=== PATIENT | female | born 1990 | race African-American/Black ===

== ENCOUNTER 2018-07-03 22:11 | Emergency (ER) | payer SELFPAY ==
[2018-07-03 22:21] VITALS: BP 132/89; PULSE 88; TEMP 98.2; BMI 24.7
--- NOTE | 2018-07-03 22:56 | PDOC ---
History of Present Illness - General History Source: Patient Exam Limitations: No Limitations - History of Present Illness Initial Comments: 07/03/18 23:04 The patient is a 27 year old female presenting with her family, with a significant past medical history of anxiety, who presents to the ED complaining of a cough for the last 2 days and chest pain. She notes that her chest pain ranges from mild to moderate, without radiation or modifying factors. 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 And she has been noticing her symptoms flare up after a night of heavy drinking. She also notices her symptoms when she encounters second hand smoke. She notes that she smoked a "laced" marijuana joint roughly 6 years back and got a panic attack. She notes that her heart rate was in the 200s at the time, she was given fluids and medicine to bring down her rate. The patient denies shortness of breath, headache and dizziness. Denies fever, chills, nausea, vomiting, diarrhea or constipation. Denies dysuria, frequency, urgency and hematuria. Allergies: None Past surgical history: None reported Social History: Alcohol use. Former Smoker. <Seferino El - Last Filed: 07/03/18 23:02> <Mark Garber - Last Filed: 07/04/18 02:59> - General Chief Complaint: Respiratory Stated Complaint: COUGH/CHEST PAIN Time Seen by Provider: 07/03/18 22:37 Past History <Seferino El - Last Filed: 07/03/18 23:02> - Past Medical History COPD: No Psychiatric Problems: Yes (ANXIETY) - Suicide/Smoking/Psychosocial Hx Smoking History: Never smoked <Mark Garber - Last Filed: 07/04/18 02:59> - Past Medical History Allergies/Adverse Reactions: Allergies Allergy/AdvReac Type Severity Reaction Status Date / Time No Known Allergies Allergy Unverified 07/03/18 22:12 Home Medications: Ambulatory Orders NK [No Known Home Medication] 07/03/18 Review of Systems - Review of Systems Able to Perform ROS?: Yes Comments:: 07/03/18 23:03 GENERAL/CONSTITUTIONAL: No fever or chills. No weakness. HEAD, EYES, EARS, NOSE AND THROAT: No change in vision. No ear pain or discharge. No sore throat. GASTROINTESTINAL: No nausea, vomiting, diarrhea or constipation. GENITOURINARY: No dysuria, frequency, or change in urination. CARDIOVASCULAR: (+) Chest pain. No shortness of breath. RESPIRATORY: (+) Cough. No wheezing, or hemoptysis. MUSCULOSKELETAL: No joint or muscle swelling or pain. No neck or back pain. SKIN: No rash NEUROLOGIC: No headache, vertigo, loss of consciousness, or change in strength/ sensation. ENDOCRINE: No increased thirst. No abnormal weight change. HEMATOLOGIC/LYMPHATIC: No anemia, easy bleeding, or history of blood clots. ALLERGIC/IMMUNOLOGIC: No hives or skin allergy. <Seferino El - Last Filed: 07/03/18 23:02> *Physical Exam - Vital Signs Last Vital Signs Temp Pulse Resp BP Pulse Ox 98.2 F 88 16 132/89 100 07/03/18 22:16 07/03/18 22:16 07/03/18 22:16 07/03/18 22:16 07/03/18 22:16 - Physical Exam Comments: 07/03/18 23:02 Constitutional: Awake, alert, oriented. No acute distress. Head: Normocephalic. Atraumatic Eyes: PERRL. EOMI. Conjunctivae are not pale. ENT: Mucous membranes are moist and intact. Posterior pharynx without exudates or erythema. Uvula midline. Neck: Supple. Full ROM. No lymphadenopathy. Cardiovascular: Regular rate. Regular rhythm. S1, S2 regular. Distal pulses are 2+ and symmetric. Pulmonary/Chest: No evidence of respiratory distress. Clear to auscultation bilaterally No wheezing, rales or rhonchi. Abdominal: Soft and non-distended. There is no tenderness. No rebound, guarding or rigidity. No organomegaly. No palpable masses. Good bowel sounds. Back: No CVA tenderness. Musculoskeletal: No edema. No cyanosis. No clubbing. Full range of motion in all extremities. Nocalf tenderness. Radial/pedal pulses are intact and 2+ bilaterally Skin: Skin is warm and dry. No petechiae. No purpura. Neurological: Alert and oriented to person, place, and time. Cranial nerves II -XII are grossly intact. Normal speech. Strength is grossly symmetric. No sensory deficits. Psychiatric: Good eye contact. Normal interaction, affect and behavior. <Seferino El - Last Filed: 07/03/18 23:02> - Vital Signs Last Vital Signs Temp Pulse Resp BP Pulse Ox 98.2 F 88 16 132/89 100 07/03/18 22:16 07/03/18 22:16 07/03/18 22:16 07/03/18 22:16 07/03/18 22:16 <Mark Garber - Last Filed: 07/04/18 02:59> Moderate Sedation - Procedure Monitoring Vital Signs: Procedure Monitoring Vital Signs Temperature 98.2 F 07/03/18 22:16 Pulse Rate 88 07/03/18 22:16 Respiratory Rate 16 07/03/18 22:16 Blood Pressure 132/89 07/03/18 22:16 O2 Sat by Pulse Oximetry (%) 100 07/03/18 22:16 <Seferino El - Last Filed: 07/03/18 23:02> - Procedure Monitoring Vital Signs: Procedure Monitoring Vital Signs Temperature 98.2 F 07/03/18 22:16 Pulse Rate 88 07/03/18 22:16 Respiratory Rate 16 07/03/18 22:16 Blood Pressure 132/89 07/03/18 22:16 O2 Sat by Pulse Oximetry (%) 100 07/03/18 22:16 <Mark Garber - Last Filed: 07/04/18 02:59> Heart Score/ECG Review #1 ECG reviewed & interpreted by me at: 23:03 07/03/18 23:03 Sinus Rhythm at 82 Normal [place] Normal Intervals No Ischemic Findings <Seferino El - Last Filed: 07/03/18 23:02> Medical Decision Making - Medical Decision Making 07/04/18 02:59 ? arrhythmia PERC- cards fu for holter <Mark Garber - Last Filed: 07/04/18 02:59> *DC/Admit/Observation/Transfer - Attestations Scribe Attestion: 07/03/18 23:02 Documentation prepared by Seferino El, acting as medical device assembler for Mark Garber MD <Seferino El - Last Filed: 07/03/18 23:02> <Mark Garber - Last Filed: 07/04/18 02:59> Diagnosis at time of Disposition: Heart palpitations - Discharge Dispostion Disposition: HOME Condition at time of disposition: Stable - Referrals Referrals: Dion Wilson MD [Staff Physician] - - Patient Instructions Printed Discharge Instructions: DI for Arrhythmias
--- NOTE | 2018-07-06 12:35 | EKG ---
Test Reason : Blood Pressure : / mmHG Vent. Rate : 082 BPM Atrial Rate : 082 BPM P-R Int : 176 ms QRS Dur : 070 ms QT Int : 370 ms P-R-T Axes : 068 047 031 degrees QTc Int : 432 ms NORMAL SINUS RHYTHM NORMAL ECG NO PREVIOUS ECGS AVAILABLE Confirmed by LIZZ PALENCIA MD ([id number]) on 07/06/2018 12:35:14 PM Referred By: DR WRIGHT Confirmed By:LIZZ PALENCIA MD
== END 2018-07-03 22:59 | disposition home or self-care (01) ==
LOC: FER 22:11
CPT/HCPCS: 36415; 87389; 93005; 99281-25

== ENCOUNTER 2018-07-15 05:54 | Emergency (ER) | payer SELFPAY ==
--- NOTE | 2018-07-15 05:57 | PDOC ---
History of Present Illness - General Chief Complaint: Chest Pain Stated Complaint: CHEST PAIN Time Seen by Provider: 07/15/18 05:57 History Source: Patient Exam Limitations: No Limitations - History of Present Illness Initial Comments: 07/15/18 06:00 Ms Buck is a 27 yo F who presents to the ER with a complaint of chest pain. Pt states that tonight, she went to be at approximately 2am and awoke from sleep with left chest pain, which she describes as "sticking pain" which occurred every 3 minutes No radiation (+) palpitations (+) dizziness This pain woke her from sleep She took deep breaths, took a shower but still felt this pain Because her pain has persisted, she decided to come back to the ER for assessment Of note, pt had NO pain since her last visit to the ER No leg swelling, no OCPs/exogenous estrogens, No h/o cancer, no recent travel or immobilization Of note, pt was seen in the ER 12 days ago with similar symptoms She reports that she has had these symptoms in the past. The first time was after smoking laced marijuana since then, she has eliminated many things from her diet which cause her to have these symptoms including brown liquors, tomato paste, soda, caffeine, alcohol Pt thinks her symptoms perhaps are related to her use soda over the past 3 weeks Pt states that she is also concerned that her symptoms may be due to alcohol use - today she drank 2 shots of vodka and a mixed drink (this is much less than she typically drinks - 1 case of beer and several mixed drinks/night while at work) Denies shortness of breath, headache. Denies fever, chills, nausea, vomiting, diarrhea or constipation. Denies dysuria, frequency, urgency and hematuria. Allergies: None Past surgical history: None reported Social History: PMH: denies PSH: denies Meds: denies ALL: NKDA Social: Alcohol use. Former Smoker. FH: not applicable ROS: GENERAL/CONSTITUTIONAL: No: fever, chills, weakness, loss of appetite. HEAD, EYES, EARS, NOSE AND THROAT: No: change in vision, ear pain, discharge, sore throat, throat swelling. CARDIOVASCULAR: Yes: chest pain, dizziness, palpitations No: syncope RESPIRATORY: No: cough, shortness of breath, wheezing GASTROINTESTINAL: No: nausea, vomiting, diarrhea, abdominal pain GENITOURINARY: No: dysuria, hematuria, frequency, urgency, flank pain. MUSCULOSKELETAL: No: back pain, neck pain, joint pain, muscle swelling or pain SKIN: No: lesions, pallor, rash or easy bruising. NEUROLOGIC: No: headache, vertigo, paresthesias, weakness ENDOCRINE: No: unexplained weight gain or loss HEMATOLOGIC/LYMPHATIC: No: anemia, easy bleeding, swelling nodes. PE: GENERAL: The patient is in no acute distress. HEAD: Normal with no signs of trauma. EYES: PERRLA, EOMI, sclera anicteric, conjunctiva clear. ENT: Ears normal, nares patent, oropharynx clear without exudates. Moist mucous membranes. NECK: Normal range of motion, supple , enlarged/firm thyroid LUNGS: Breath sounds equal, clear to auscultation bilaterally. No wheezes, and no crackles. HEART:Regular rate and rhythm, normal S1 and S2 without murmur, rub or gallop. ABDOMEN: Soft, nontender, normoactive bowel sounds. No guarding, no rebound. No masses palpable. EXTREMITIES: Normal range of motion, no edema. NEUROLOGICAL: Cranial nerves II through XII grossly intact. Normal speech. No focal neurological deficits. MUSCULOSKELETAL: Back non-tender to palpation SKIN: Warm, Dry, normal turgor, no rashes or lesions noted. 07/15/18 06:36 07/15/18 06:47 Past History - Past Medical History Allergies/Adverse Reactions: Allergies Allergy/AdvReac Type Severity Reaction Status Date / Time No Known Allergies Allergy Verified 07/15/18 05:56 Home Medications: Ambulatory Orders NK [No Known Home Medication] 07/03/18 COPD: No Psychiatric Problems: Yes (ANXIETY) - Suicide/Smoking/Psychosocial Hx Smoking History: Never smoked ED Treatment Course - LABORATORY CBC & Chemistry Diagram: 07/15/18 06:36 07/15/18 06:36 Medical Decision Making - Medical Decision Making 07/15/18 06:27 Pt returns to the ER with a complaint of palpitations Likely related to anxiety/panic attack On examination, pt thyroid enlarged will send TSH to eval for hyperthyroidism EKG nml, pt on monitor. No ekg abnormality seen, will continue to monitor on monitor for intermittent SVT or other arrhythmia considered PE but symptoms have been intermittent, pt vital signs re assuring, PERC neg/Low risk wells considered electrolyte abnormality, but this is less likely EKG - Twelve-lead EKG was performed and reviewed by me. There is normal sinus rhythm with a normal rate of 74 bpm. The axis is normal. The intervals are normal. There are no ST or T wave abnormalities. 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 Please watch the caffeine intake. Please drink plenty of water. Please return to the ED with any further concerns or complaints. - Post Discharge Activity
[2018-07-15 06:00] VITALS: BMI 25.7
--- NOTE | 2018-07-15 07:38 | PDOC ---
*Physical Exam - Vital Signs Last Vital Signs Temp Pulse Resp BP Pulse Ox 98 F 73 16 125/80 100 07/15/18 05:57 07/15/18 05:57 07/15/18 05:57 07/15/18 05:57 07/15/18 05:57 - Physical Exam Comments: 07/15/18 08:20 Gen: aaox3, nad heart: +s1s2 reg lungs: cta b/l ext: no c/c/e ED Treatment Course - LABORATORY CBC & Chemistry Diagram: 07/15/18 06:36 07/15/18 06:36 Medical Decision Making - Medical Decision Making 07/15/18 07:39 27yo female with palpitations - pt signed out from the prior attending pending labs, cxr EKG: sinus at 74, nl axis, nl interval, no acute st/t wave findings 07/15/18 08:21 pt states she woke up at 330 feeling as if her heart was palpating. currently denies symptoms of palpitations -states she did drink soda yesterday and coffee, has been trying to cut back on soda and coffee because she had palpitations about 2 weeks ago as well. has not followed up with cards for halter monitor -denies cp -labs pending 07/15/18 09:24 trop negative tsh normal serum preg negative 07/15/18 09:30 cxr clear 07/15/18 09:35 cxr negative per radiology 07/15/18 09:41 labs reviewed pt stable for dc to home discussed follow up with cards and all reasons to return to the Ed *DC/Admit/Observation/Transfer Diagnosis at time of Disposition: Heart palpitations - Discharge Dispostion Disposition: HOME Condition at time of disposition: Stable Decision to Admit order: No - Referrals Referrals: Gagan Campos MD [Staff Physician] - Alo Montano MD [Staff Physician] - - Patient Instructions Printed Discharge Instructions: DI for Palpitations Additional Instructions: Please follow up with your PMD and the 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 Please watch the caffeine intake. Please drink plenty of water. Please return to the ED with any further concerns or complaints. - Post Discharge Activity
[2018-07-15 09:02] LABS: BASO % 0.4 % (0-2.0); EOS % 2.8 % (0-4.5); HEMATOCRIT 37.2 % (32.4-45.2); HEMOGLOBIN 13.6 GM/dL (10.7-15.3); MCH 30.9 pg (25.7-33.7); MCHC 36.4 g/dl (32.0-36.0); MEAN CELL VOLUME 84.9 fl (80-96); MEAN PLT VOLUME 9.3 fl (7.5-11.1); MONO % 6.6 % (3.8-10.2); NEUT % 53.2 % (42.8-82.8); PLATELET COUNT 283 K/MM3 (134-434); RBC 4.38 M/mm3 (3.60-5.2); RDW 13.2 % (11.6-15.6); WHITE BLOOD COUNT 8.1 K/mm3 (4.0-10.0)
[2018-07-15 09:11] LABS: INR 1.07 (0.83-1.09); PROTHROMBIN TIME (PATIENT) 12.6 SEC (9.7-13.0)
[2018-07-15 09:34] LABS: CREATININE 0.8 mg/dL (0.55-1.3); TOT PROT 7.6 g/dl (6.4-8.2)
[2018-07-15 09:35] LABS: ALBUMIN 4.2 g/dl (3.4-5.0); ANION GAP 8 MMOL/L (8-16); BILIRUBIN,TOTAL 0.2 mg/dL (0.2-1); CHLORIDE 104 mmol/L (98-107); CO2 25 mmol/L (21-32); POTASSIUM 4.3 mmol/L (3.5-5.1); SGOT/AST 14 U/L (15-37); SODIUM 137 mmol/L (136-145)
[2018-07-15 09:36] LABS: ALK PHOS 64 U/L (45-117); SGPT/ALT 22 U/L (13-61)
[2018-07-15 09:42] LABS: BLOOD UREA NITROGEN 13 mg/dL (7-18); GLUCOSE,RANDOM 81 mg/dL (74-106)
[2018-07-15 09:49] VITALS: BP 109/72; PULSE 74; TEMP 97.9
--- NOTE | 2018-07-15 16:58 | EKG ---
Test Reason : Blood Pressure : / mmHG Vent. Rate : 074 BPM Atrial Rate : 074 BPM P-R Int : 172 ms QRS Dur : 070 ms QT Int : 390 ms P-R-T Axes : 060 045 027 degrees QTc Int : 432 ms NORMAL SINUS RHYTHM WITH SINUS ARRHYTHMIA NORMAL ECG WHEN COMPARED WITH ECG OF 03-JUL-2018 22:41, NO SIGNIFICANT CHANGE WAS FOUND Confirmed by MD Turner Daniel ([id number]) on 07/15/2018 4:58:09 PM Referred By: JOSE ELIAS Confirmed By:Deni Turner MD
== END 2018-07-15 09:48 | disposition home or self-care (01) ==
LOC: FER 05:54
DX: R00.2 Palpitations (principal)
CPT/HCPCS: 36415; 71046-TC-FY; 80053; 82550; 84443; 84484; 84703; 85025; 85610; 93005; 99282-25

== ENCOUNTER 2020-10-04 10:21 | Emergency (ER) | payer OTHER ==
[2020-10-04] MEDS ORDERED: LIDOCAINE 5% TOPICAL PATCH TP ONE (10:44)
[2020-10-04 10:48] VITALS: BP 128/87; PULSE 83; TEMP 98; BMI 24.7
[2020-10-04] MEDS ORDERED: METHOCARBAMOL 500 MG TABLET PO ONE (10:51)
[2020-10-04] MEDS ORDERED: IBUPROFEN 600 MG TABLET (FP) PO ONE (10:51)
[2020-10-04] MEDS ORDERED: KETOROLAC TROMETHAMINE 30 MG/1 ML VIAL IM ONE (10:52)
[2020-10-04] MEDS ORDERED: KETOROLAC TROMETHAMINE 60 MG/2 ML VIAL IM ONE (10:56)
[2020-10-04] MEDS ORDERED: METHOCARBAMOL 500 MG TABLET ONE (11:09)
[2020-10-04] MEDS ORDERED: KETOROLAC TROMETHAMINE 60 MG/2 ML VIAL ONE (11:09)
[2020-10-04] MEDS ORDERED: LIDOCAINE 5% TOPICAL PATCH ONE (11:09)
[2020-10-04] MEDS ORDERED: LIDOCAINE PATCH REMOVAL MC SCH (22:00)
== END 2020-10-04 11:57 | disposition home or self-care (01) ==
LOC: FER 10:21
PROC: 3E0233Z Introduction of Anti-inflammatory into Muscle, Percutaneous Approach (ICD-10-PCS; principal; 2020-10-04)
DX: M62.838 Other muscle spasm (principal); M54.2 Cervicalgia
CPT/HCPCS: 36415; 84703; 87491; 87591; 96372; 99284-25